=== PATIENT | female | born 1945 | race Caucasian/White ===

== ENCOUNTER → 2016-05-07 | Outpatient (CLI) | payer BC ==
[~2016-05-07] MED LIST: ALBU1AER9 INH; AMOX500T PO; ATOR-14 PO; ATV5 PO; CLBCRM30 EXT; CLX20 PO; CMD3 PO; ERGO500037 PO; FERR-24 PO; FRS/40 PO; GABA-113 PO; LDXCR30 TOP; QUET1TAB9 PO
[2016-05-07 13:18] LABS: ALT/SGPT 21 U/L (12-78); BLOOD UREA NITROGEN 10 mg/dl (7-18); BUN/CREATININE RATIO 12.5 (10-20); CALCIUM 9.4 mg/dl (8.5-10.1); CARBON DIOXIDE 28 mmol/L (21-32); CHLORIDE 105 mmol/L (98-107); CHOLESTEROL 171 mg/dl (0-200); GLUCOSE 89 mg/dl (70-99); POTASSIUM 3.8 mmol/L (3.5-5.1); SODIUM 141 mmol/L (136-145); TRIGLYCERIDES 168 mg/dl (0-150); VERY LOW DENSITY LIPOPROT CALC 34 mg/dl
[2016-05-07 13:20] LABS: ALKALINE PHOSPHATASE 130 U/L (45-117); AST/SGOT 17 U/L (15-37); CHOLESTEROL/HDL RATIO 3.9; HDL CHOLESTEROL 44 mg/dl; LDL CHOLESTEROL CALCULATED 93 mg/dl
== END | disposition home or self-care (01) ==
LOC: C.LABPVFM 08:32
PROVIDERS: ATTEND Nurse Practitioner
DX: I10 Essential (primary) hypertension (principal); E55.9 Vitamin D deficiency, unspecified; E78.5 Hyperlipidemia, unspecified; Z51.81 Encounter for therapeutic drug level monitoring; Z79.01 Long term (current) use of anticoagulants; Z11.59 Encounter for screening for other viral diseases

== ENCOUNTER → 2016-10-29 | Outpatient (CLI) | payer BC ==
[2016-10-29 13:16] LABS: ALT/SGPT 24 U/L (12-78); BLOOD UREA NITROGEN 12 mg/dl (7-18); BUN/CREATININE RATIO 12.5 (10-20); CALCIUM 9.4 mg/dl (8.5-10.1); CARBON DIOXIDE 27 mmol/L (21-32); CHLORIDE 108 mmol/L (98-107); CREATININE 0.97 mg/dl (0.60-1.20); GLUCOSE 124 mg/dl (70-99); POTASSIUM 3.8 mmol/L (3.5-5.1); SODIUM 141 mmol/L (136-145)
[2016-10-29 13:20] LABS: ALKALINE PHOSPHATASE 103 U/L (45-117); AST/SGOT 18 U/L (15-37)
== END | disposition home or self-care (01) ==
LOC: C.LABPVFM 10:18
PROVIDERS: ATTEND Nurse Practitioner
DX: I10 Essential (primary) hypertension (principal)

== ENCOUNTER → 2016-12-18 | Outpatient (CLI) | payer BC ==
[2016-12-18 10:11] LABS: CHOLESTEROL/HDL RATIO 3.4; THYROID STIMULATING HORMONE 2.01 uIu/ml (0.300-4.500)
[2016-12-18 10:14] LABS: ESTIMATED AVERAGE GLUCOSE 120 mg/dl; HA1C FLAG Normal (Normal)
[2016-12-18 10:17] LABS: BASO % 0.3 %; BASO ABS # 0.02 K/uL (0-0.2); COMPLETE YES; EOS % 5.8 %; HEMATOCRIT 41.3 % (37-47); IG% 0.4 %; LYMPH % 20.3 %; LYMPH ABS # 1.55 K/uL (1.2-3.4); MEAN CELL VOLUME 93.2 fL (80-100); MEAN CORPUSCULAR HGB CONC 32.2 g/dl (32-36); MEAN PLATELET VOLUME 10.2 fL (7.4-10.4); NEUT % 63.2 %; PLATELET COUNT 280 K/uL (130-400); RED BLOOD COUNT 4.43 M/uL (4.2-5.4); WHITE BLOOD COUNT 7.62 K/uL (4.8-10.8)
--- NOTE | 2016-12-28 10:44 | CODING QUERY MEDICAL NECESSITY ---
CQSUPPORTING DIAGNOSIS NEEDED A supporting diagnosis is required for the test/procedure performed on this patient in order for us to be reimbursed by the patient's insurance. Please provide a supporting diagnosis for the following test/procedure listed below next to the test name along with your signature. *If there is no additional diagnosis for this patient that would support the following test/procedure please document that below next to the test/procedure. Test(s)/Procedure(s) that require a supporting diagnosis: FERMIN 12/18/16 GLYCATED HEMOGLOBIN TEST Provider Signature: Date: Thank you Mary [facility] Information Management Once completed, please kindly fax back to [phone] For questions please call [phone]
== END | disposition home or self-care (01) ==
LOC: C.LAB1850 08:29
PROVIDERS: ATTEND Nurse Practitioner Adult Health
DX: Z13.1 Encounter for screening for diabetes mellitus (principal); I10 Essential (primary) hypertension; E78.5 Hyperlipidemia, unspecified; R53.83 Other fatigue

== ENCOUNTER → 2017-05-20 | Outpatient (CLI) | payer BC, OTHER ==
--- NOTE | 2017-05-20 10:07 | DIAGNOSTIC IMAGING REPORT ---
SINGLE VIEW PELVIS; SINGLE VIEW RIGHT HIP CLINICAL HISTORY: Right hip pain. FINDINGS: An AP view of the pelvis and a frog-leg view of the right hip are obtained. No prior studies are available for comparison at the time of dictation. The skeletal structures are osteopenic. No fracture is seen involving the hips or bony pelvis. 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 Sclerotic change is noted in the pubic symphysis. The sacroiliac joints are normal in appearance. The overlying soft tissues are unremarkable. There is no bowel obstruction. IMPRESSION: 1. No acute bony abnormality is seen in the hips or pelvis. 2. 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 Electronically signed by: Jerel Doe M.D. 05/20/2017 10:06 AM Dictated Date/Time: 05/20/2017 10:04 AM
== END | disposition home or self-care (01) ==
LOC: C.RAD1850 09:55
PROVIDERS: ATTEND Nurse Practitioner Adult Health
DX: M25.551 Pain in right hip (principal)